=== PATIENT | male | born 1980 | race Two or more races ===

== ENCOUNTER 2024-05-11 17:32 | Inpatient (IN) | payer OTHER ==
[~2024-05-11] VITALS: Ht 180.3 cm; Wt 97.5 kg
[2024-05-11] MEDS ORDERED: DEPAKOTE ER500 MG PO (17:40)
[2024-05-11] MEDS ORDERED: LOTREL 5-20 MG1 CAP PO (17:40)
[2024-05-11] MEDS ORDERED: HYOSCYAMINE SULFATE 0.125 MG TAB.SUBL SL STA (20:09)
[2024-05-11] MEDS ORDERED: RINGERS SOLUTION,LACTATED 1,000 ML IV STA (20:10)
[2024-05-11] MEDS ORDERED: MEPERIDINE HCL/PF 50 MG/ML VIAL IM STA (20:10)
[2024-05-11] MEDS ORDERED: PROMETHAZINE HCL 50 MG/ML AMPUL IM STA (20:11)
[2024-05-11] MEDS ORDERED: HYOSCYAMINE SULFATE 0.125 MG TAB.SUBL ONE (20:16)
[2024-05-11] MEDS ORDERED: BARIUM SULFATE 450 ML ORAL.SUSP PO ONE (20:16)
[2024-05-11] MEDS ORDERED: PROMETHAZINE HCL 50 MG/ML AMPUL IM ONE (20:16)
[2024-05-11 20:41] LABS: HEMATOCRIT 42.7 % (39.0-48.0); HEMOGLOBIN 14.6 g/dL (13-16.00); MEAN CELL VOLUME 97.2 fL (80.0-100.00); MEAN CORPUSCULAR HEMOGLOBIN 33.3 pg (27.00-32.0); MEAN CORPUSCULAR HGB CONC 34.3 g/dl (32.0-36.0); PLATELET COUNT 178 K/uL (150-450); RED BLOOD COUNT 4.39 M/uL (4.00-6.00); RED CELL DISTRIBUTION WIDTH 13.7 % (11.5-14.5)
[2024-05-11 21:22] LABS: ALBUMIN 3.7 gm/dL (3.4-5.0); BILIRUBIN TOTAL 0.38 mg/dL (0.3-1.2); CALCIUM 8.9 mg/dL (8.5-10.1); CREATININE SERUM 1.04 mg/dL (0.70-1.30); GFR 77.23; GLOBULINA 3.4 G/DL (2.4-3.5); POTASSIUM 4.3 mEq/L (3.5-5.1); TOTAL PROTEIN 7.1 gm/dL (6.4-8.2)
[2024-05-12] MEDS ORDERED: CIPROFLOXACIN IN 5 % DEXTROSE 400 MG/200 ML PIGGYBAG IV STA (01:34)
[2024-05-12] MEDS ORDERED: METRONIDAZOLE/SODIUM CHLORIDE 100 ML IV SCH ×2 (01:35→09:38)
[2024-05-12] MEDS ORDERED: CIPROFLOXACIN IN 5 % DEXTROSE 400 MG/200 ML PIGGYBAG IV SCH (01:35)
[2024-05-12] MEDS ORDERED: MEPERIDINE HCL/PF 50 MG/ML VIAL IM PRN (01:45)
[2024-05-12] MEDS ORDERED: CIPROFLOXACIN IN 5 % DEXTROSE 400 MG/200 ML PIGGYBAG IV ONE (01:46)
[2024-05-12 07:59] VITALS: BP 108/74; O2SAT 96
[2024-05-12] MEDS ORDERED: KETOROLAC TROMETHAMINE 30 MG VIAL IV PRN (08:00)
[2024-05-12] MEDS ORDERED: ONDANSETRON HCL 2 MG/ML VIAL IV PRN (08:18)
[2024-05-12] MEDS ORDERED: 0.9 % SODIUM CHLORIDE 1,000 ML IV SCH (08:30)
[2024-05-12] MEDS ORDERED: CIPROFLOXACIN IN 5 % DEXTROSE 200 ML IV SCH (09:38)
[2024-05-12] MEDS ORDERED: MORPHINE SULFATE 4 MG/ML CARTRIDGE IV PRN (11:15)
[2024-05-12] MEDS ORDERED: PANTOPRAZOLE SODIUM 40 MG/VIAL VIAL IV SCH (11:17)
[2024-05-12] MEDS ORDERED: PIPERACILLIN/TAZOBACTAM SODIUM 3.375 GM VIAL IV ONE (11:30)
[2024-05-12] MEDS ORDERED: PIPERACILLIN/TAZOBACTAM SODIUM 3.375 GM in DEXTROSE 5 % IN WATER 100 ML IV SCH (12:00)
[2024-05-12] MEDS ORDERED: ONDANSETRON HCL 2 MG/ML VIAL IV SCH (12:00)
[2024-05-12] MEDS ORDERED: PIPERACILLIN/TAZOBACTAM SODIUM 3.375 GM VIAL IV SCH (12:00)
[2024-05-12 16:08] VITALS: BP 124/73
[2024-05-12] MEDS ORDERED: CARBAMAZEPINE400 M1 (16:20)
[2024-05-12] MEDS ORDERED: KETOROLAC TROMETHAMINE 30 MG VIAL IV SCH (17:00)
[2024-05-12] MEDS ORDERED: DEXTROSE 5%-WATER 100ML IV.SOLN ONE (23:52)
[2024-05-13] MEDS ORDERED: DEXTROSE 5%-WATER 100ML IV.SOLN ONE (00:51)
[2024-05-13 02:05] VITALS: BP 107/60
[2024-05-13 08:00] VITALS: BP 124/73
[2024-05-13] MEDS ORDERED: LOSARTAN POTASSIUM 25 MG TABLET PO SCH (09:00)
[2024-05-13] MEDS ORDERED: AMLODIPINE BESYLATE 2.5 MG TABLET PO SCH (09:00)
[2024-05-13 17:51] VITALS: BP 112/70
[2024-05-13] MEDS ORDERED: RINGERS SOLUTION,LACTATED 1,000 ML IV SCH (19:15)
[2024-05-13 22:45] VITALS: BP 140/85
[2024-05-14 01:42] VITALS: BP 102/70
[2024-05-14 07:39] LABS: HEMATOCRIT 39.6 % (39.0-48.0); HEMOGLOBIN 13.9 g/dL (13-16.00); MEAN CELL VOLUME 94.1 fL (80.0-100.00); MEAN CORPUSCULAR HGB CONC 35.1 g/dl (32.0-36.0); PLATELET COUNT 178 K/uL (150-450); RED BLOOD COUNT 4.21 M/uL (4.00-6.00); RED CELL DISTRIBUTION WIDTH 13.1 % (11.5-14.5)
[2024-05-14 08:15] LABS: ALBUMIN 3.4 gm/dL (3.4-5.0); BILIRUBIN TOTAL 0.31 mg/dL (0.3-1.2); CALCIUM 8.6 mg/dL (8.5-10.1); CREATININE SERUM 0.98 mg/dL (0.70-1.30); GFR 82.71; GLOBULINA 2.8 G/DL (2.4-3.5); MAGNESIUM 2.3 mg/dL (1.8-2.4); PHOSPHOROUS 4.7 mg/dL (2.5-4.9); POTASSIUM 4.4 mEq/L (3.5-5.1); TOTAL PROTEIN 6.2 gm/dL (6.4-8.2)
[2024-05-14 08:39] VITALS: BP 116/76
[2024-05-14 17:00] VITALS: BP 140/60
[2024-05-15 00:51] VITALS: BP 128/87
[2024-05-15 09:31] VITALS: BP 107/64
[2024-05-15] MEDS ORDERED: NORVASC2.5 M1 PO (16:24)
[2024-05-15] MEDS ORDERED: LOSARTAN POTASS25 MG PO (16:24)
[2024-05-15] MEDS ORDERED: INTESTINEX680 M2 PO (16:25)
[2024-05-15] MEDS ORDERED: AMOX-CLAV 875-1 EAC1 PO (16:25)
[2024-05-15] MEDS ORDERED: PANTOPRAZOLE SO20 MG PO (16:25)
[2024-05-15] MEDS ORDERED: TRAM1TAB98 PO ×2 (16:27→16:33)
[2024-05-15] MEDS ORDERED: LEVSIN0.125 MG PO (16:29)
[2024-05-15] MEDS ORDERED: DEXTROSE 5%-WATER 100ML IV.SOLN ONE (16:40)
== END 2024-05-15 17:30 | DRG 392 ==
LOC: ER 17:33 → MEDI 05-12 11:16
PROVIDERS: ADMIT Internal Medicine; ATTEND Internal Medicine
PROC: BW21YZZ Computerized Tomography (CT Scan) of Abdomen and Pelvis using Other Contrast (ICD-10-PCS; principal; 2024-05-11)
DX: K57.30 Diverticulosis of large intestine without perforation or abscess without bleeding (principal); I10 Essential (primary) hypertension